=== PATIENT | female | born 1960 | race Caucasian/White ===

== ENCOUNTER 2018-07-31 10:03 | Inpatient (IN) | payer OTHER ==
[~2018-07-31] VITALS: Ht 162.6 cm; Wt 72.7 kg
[2018-07-31] MEDS ORDERED: IV NORMAL SALINE 500ML BAG 500 ML IV SCH (11:00)
--- NOTE | 2018-07-31 11:08 | EKG ---
[facility] [address] [place] [address] Test Date: 2018-07-31 Test Time: 10:47:55 Pat Name: LEMUEL BANGURA Department: Room: Gender: F [employer]: : 1960 Requested By: RODOLFO RODRIGUEZ Order Number: [id number] Reading MD: J Luis Christina MD Measurements Intervals [place] Rate: 80 P: 35 MT: 108 QRS: 67 QRSD: 84 T: 50 QT: 362 QTc: 420 Interpretive Statements SINUS RHYTHM NON SPECIFIC ST DEPRESSION Electronically Signed On 07-31-2018 15:44:18 CDT by J Luis Christina MD
--- NOTE | 2018-07-31 11:30 | RAD ---
PORTABLE CHEST 1V History: PASSED OUT TODAY Comparison: None. Findings: Single view of the chest is submitted. There is no infiltrate, pneumothorax, or effusion. The pericardial cardiac silhouette is within normal limits in size. Impression: 1. There is no evidence of acute cardiopulmonary disease. Electronically signed by: Reed Mccarty MD (07/31/2018 11:28 AM) [id number]
[2018-07-31 11:48] LABS: BASO # 0.1 x10^3/uL (0.0-0.2); BASO % 1 % (0-3); EOS # 0.2 x10^3/uL (0.0-0.7); EOS % 2 % (0-3); HEMOGLOBIN 14.8 g/dL (12.0-15.5); LYMPH # 2.9 x10^3/uL (1.0-4.8); LYMPH % 25 % (24-48); MEAN CORPUSCULAR HEMOGLOBIN 30 pg (25-35); MEAN CORPUSCULAR HGB CONC 34 g/dL (31-37); MEAN CORPUSCULAR VOLUME 90 fL (79-100); MONO # 0.7 x10^3/uL (0.0-1.1); MONO % 6 % (0-9); NEUT # 7.8 x10^3uL (1.8-7.7); NEUT % 67 % (31-73); PLATELET COUNT 351 x10^3/uL (140-400); RED BLOOD COUNT 4.92 x10^6/uL (3.50-5.40); RED CELL DISTRIBUTION WIDTH 14.6 % (11.5-14.5); WHITE BLOOD COUNT 11.6 x10^3/uL (4.0-11.0)
[2018-07-31 11:50] LABS: BILIRUBIN,URINE NEGATIVE (NEG); CLARITY,URINE CLEAR; COLOR,URINE YELLOW; NITRITE,URINE NEGATIVE (NEG); PROTEIN,URINE NEGATIVE (NEG-TRACE); UROBILINOGEN,URINE 0.2 mg/dL (0.2 mg/dL)
[2018-07-31 11:57] LABS: BARBITURATES NEG (NEG); BENZODIAZEPINES NEG (NEG); CANNABINOIDS NEG (NEG); COCAINE NEG (NEG); METHADONE NEG (NEG); OPIATES NEG (NEG); PHENCYCLIDINE NEG (NEG)
[2018-07-31 11:59] LABS: AMPHETAMINE/METHAMPHETAMINE NEG (NEG)
[2018-07-31 12:01] LABS: BACTERIA,URINE FEW /HPF (0-FEW); SQUAMOUS EPITHELIAL CELL,UR FEW /LPF; WBC,URINE OCC /HPF (0-4)
[2018-07-31 12:04] LABS: CALCIUM 9.3 mg/dL (8.5-10.1); CREATININE 1.2 mg/dL (0.6-1.0); GFR 46.3
[2018-07-31 12:11] LABS: ALBUMIN 4.1 g/dL (3.4-5.0); ALBUMIN/GLOBULIN RATIO 1.1 (1.0-1.7); MAGNESIUM 2.2 mg/dL (1.8-2.4); TOTAL BILIRUBIN 0.4 mg/dL (0.2-1.0); TOTAL PROTEIN 7.7 g/dL (6.4-8.2)
--- NOTE | 2018-07-31 13:08 | PHYS DOC ---
Past Medical History Past Medical History: Anxiety, Bipolar, Depression, Fibromyalgia, Hypertension Past Surgical History: Tonsillectomy, Tubal ligation Alcohol Use: None Drug Use: None Adult General Chief Complaint Chief Complaint: ALLERGIC REACTION HPI HPI Patient is a 58 year old female who presents with complaining of syncope. Patient states she was started on Wellbutrin few days ago for quit smoking and developed a rash in right upper extremity started 5 days ago that gradually improved but this morning she felt dizzy and lightheadedness and had a syncopal episode while she stepped outside to smoke. Patient denies history of syncope, chest pain before or after episodes of syncope, focal neuro deficit, seizure. Patient complaining of confusion. Review of Systems Review of Systems Constitutional: Denies fever or chills [] Eyes: Denies change in visual acuity, redness, or eye pain [] HENT: Denies nasal congestion or sore throat [] Respiratory: Denies cough or shortness of breath [] Cardiovascular: No additional information not addressed in HPI [] GI: Denies abdominal pain, nausea, vomiting, bloody stools or diarrhea [] : Denies dysuria or hematuria [] Musculoskeletal: Denies back pain or joint pain [] Integument:, Reports rash Neurologic: Denies headache, focal weakness or sensory changes [] Endocrine: Denies polyuria or polydipsia [] All other systems were reviewed and found to be within normal limits, except as documented in this note. Current Medications Current Medications Current Medications Medications (Trade) Dose Ordered Sig/Janessa Start Time Stop Time Status Last Admin Dose Admin Sodium Chloride 500 ml @ 500 mls/hr Q1H 07/31/18 11:00 07/31/18 11:35 DC 07/31/18 11:35 500 MLS/HR Allergies Allergies Allergies Coded Allergies Type Severity Reaction Last Updated Verified codeine Allergy Unknown 07/31/18 Yes iodine Allergy Unknown 07/31/18 Yes Physical Exam Physical Exam Constitutional: Well nourished, mild distress, non-toxic appearance. [] HENT: Normocephalic, atraumatic, bilateral external ears normal, oropharynx moist, no oral exudates, nose normal. [] Eyes: PERRLA, EOMI, conjunctiva normal, no discharge. [] Neck: Normal range of motion, no tenderness, supple, no stridor. [] Cardiovascular:Heart rate regular rhythm, no murmur [] Lungs & Thorax: Bilateral breath sounds clear to auscultation [] Abdomen: Bowel sounds normal, soft, no tenderness, no masses, no pulsatile masses. [] Skin: Warm, dry, no erythema, right forearm with nonpruritic erythematous rash without sign of infection. Back: No tenderness, no CVA tenderness. [] Extremities: No tenderness, no cyanosis, no clubbing, ROM intact, no edema. [] Neurologic: Alert and oriented X 3, normal motor function, normal sensory function, no focal deficits noted. [] Psychologic: Affect anxious, judgement normal, mood normal. [] Current Patient Data Vital Signs Vital Signs Date Time Temp Pulse Resp B/P (MAP) Pulse Ox O2 Delivery O2 Flow Rate FiO2 07/31/18 12:40 70 16 102/62 (75) 96 Room Air 07/31/18 10:30 98.4 98.4 Lab Values Laboratory Tests Test 07/31/18 11:09 07/31/18 11:25 White Blood Count 11.6 x10^3/uL (4.0-11.0) H Red Blood Count 4.92 x10^6/uL (3.50-5.40) Hemoglobin 14.8 g/dL (12.0-15.5) Hematocrit 44.0 % (36.0-47.0) Mean Corpuscular Volume 90 fL (79-100) Mean Corpuscular Hemoglobin 30 pg (25-35) Mean Corpuscular Hemoglobin Concent 34 g/dL (31-37) Red Cell Distribution Width 14.6 % (11.5-14.5) H Platelet Count 351 x10^3/uL (140-400) Neutrophils (%) (Auto) 67 % (31-73) Lymphocytes (%) (Auto) 25 % (24-48) Monocytes (%) (Auto) 6 % (0-9) Eosinophils (%) (Auto) 2 % (0-3) Basophils (%) (Auto) 1 % (0-3) Neutrophils # (Auto) 7.8 x10^3uL (1.8-7.7) H Lymphocytes # (Auto) 2.9 x10^3/uL (1.0-4.8) Monocytes # (Auto) 0.7 x10^3/uL (0.0-1.1) Eosinophils # (Auto) 0.2 x10^3/uL (0.0-0.7) Basophils # (Auto) 0.1 x10^3/uL (0.0-0.2) Sodium Level 134 mmol/L (136-145) L Potassium Level 4.0 mmol/L (3.5-5.1) Chloride Level 96 mmol/L (98-107) L Carbon Dioxide Level 24 mmol/L (21-32) Anion Gap 14 (6-14) Blood Urea Nitrogen 18 mg/dL (7-20) Creatinine 1.2 mg/dL (0.6-1.0) H Estimated GFR (Cockcroft-Gault) 46.3 BUN/Creatinine Ratio 15 (6-20) Glucose Level 86 mg/dL (70-99) Calcium Level 9.3 mg/dL (8.5-10.1) Magnesium Level 2.2 mg/dL (1.8-2.4) Total Bilirubin 0.4 mg/dL (0.2-1.0) Aspartate Amino Transferase (AST) 14 U/L (15-37) L Alanine Aminotransferase (ALT) 27 U/L (14-59) Alkaline Phosphatase 75 U/L (46-116) Creatine Kinase 86 U/L (26-192) Creatine Kinase MB (Mass) 2.2 ng/mL (0.0-3.6) Creatine Kinase MB Relative Index 2.6 % (0-4) Troponin I Quantitative < 0.017 ng/mL (0.000-0.055) Total Protein 7.7 g/dL (6.4-8.2) Albumin 4.1 g/dL (3.4-5.0) Albumin/Globulin Ratio 1.1 (1.0-1.7) Ethyl Alcohol Level < 10 mg/dL (0-10) Urine Collection Type Unknown Urine Color Yellow Urine Clarity Clear Urine pH 6.0 Urine Specific [place] 1.015 Urine Protein Negative mg/dL (NEG-TRACE) Urine Glucose (UA) Negative mg/dL (NEG) Urine Ketones (Stick) Negative mg/dL (NEG) Urine Blood Trace (NEG) Urine Nitrite Negative (NEG) Urine Bilirubin Negative (NEG) Urine Urobilinogen Dipstick 0.2 mg/dL (0.2 mg/dL) Urine Leukocyte Esterase Trace (NEG) Urine RBC 1-2 /HPF (0-2) Urine WBC Occ /HPF (0-4) Urine Squamous Epithelial Cells Few /LPF Urine Bacteria Few /HPF (0-FEW) Urine Opiates Screen Neg (NEG) Urine Methadone Screen Neg (NEG) Urine Barbiturates Neg (NEG) Urine Phencyclidine Screen Neg (NEG) Urine Amphetamine/Methamphetamine Neg (NEG) Urine Benzodiazepines Screen Neg (NEG) Urine Cocaine Screen Neg (NEG) Urine Cannabinoids Screen Neg (NEG) Urine Ethyl Alcohol Neg (NEG) Laboratory Tests 07/31/18 11:09 Laboratory Tests 07/31/18 11:09 EKG EKG EKG interpreted by me. EKG at 1047 showed normal sinus rhythm at rate of 81, normal [place] and QT intervals, no acute ST and T-wave abnormalities.[] Radiology/Procedures Radiology/Procedures [facility] [address] [place] [address] IMAGING REPORT Signed PATIENT: LEMUEL BANGURA ACCOUNT: [id number] : 1960 LOCATION: ER AGE: 58 SEX: F EXAM STATUS: REG ER ORD. PHYSICIAN: RODOLFO RODRIGUEZ MD REASON: syncope 5 PROCEDURE: PORTABLE CHEST 1V PORTABLE CHEST 1V History: PASSED OUT TODAY Comparison: None. Findings: Single view of the chest is submitted. There is no infiltrate, pneumothorax, or effusion. The pericardial cardiac silhouette is within normal limits in size. Impression: 1. There is no evidence of acute cardiopulmonary disease. Electronically signed by: Beltran Mccarty MD (07/31/2018 11:28 AM) [facility] DICTATED and SIGNED BY: BELTRAN MCCARTY MD DATE: 07/31/18 1128 Course & Med Decision Making Course & Med Decision Making Pertinent Labs and Imaging studies reviewed. (See chart for details) Personal patient in ER showed 58-year-old female patient with complaining of one episode of syncope today without history of syncopal episode. Patient was talking about different subjects at arrival to ER but later on became more alert and oriented without any neurovascular deficit and answered the questions appropriately. Plan to admit patient with diagnosis of syncope. Dragon Disclaimer Dragon Disclaimer This electronic medical record was generated, in whole or in part, using a voice recognition dictation system. Departure Departure Impression: Primary Impression: Syncope Additional Impressions: Skin rash History of bipolar disorder Tobacco abuse Disposition: 09 ADMITTED INPATIENT (at 1257) Admitting Physician: Rafi Zavala (accepted admission at 1336) Condition: IMPROVED Referrals: DALLAS MCFADDEN MD (PCP) Problem Qualifiers Primary Impression: Syncope Syncope type: unspecified Qualified Codes: R55 - Syncope and collapse RODOLFO RODRIGUEZ MD Jul 31, 2018 13:08
[2018-07-31 15:30] VITALS: BP 110/53
[2018-07-31] MEDS ORDERED: SUMA100T4 PO (16:31)
[2018-07-31] MEDS ORDERED: ONDA4TAB12 PO (16:31)
[2018-07-31] MEDS ORDERED: AZIT250T6 PO (16:31)
[2018-07-31] MEDS ORDERED: LISI1TAB5 PO (16:31)
[2018-07-31] MEDS ORDERED: FAMO20TA5 PO (16:31)
[2018-07-31] MEDS ORDERED: BUPR150T6 PO (16:32)
[2018-07-31] MEDS ORDERED: PRED20TA PO (16:32)
--- NOTE | 2018-07-31 16:48 | NUR ---
Pt cannot recall what home medications she currently takes but confirmed that her pharmacy [facility] on [address], in [facility]. Spoke with a pharmacy retail support specialist, whom faxed a current medication list, via [phone]. The medication list does not list the frequency of medications. This RN attempted to call pharmacy three times and was on hold for approx 5 minutes each time. Attempted to call patient primary doctor, Dr. Moses through [employer] and [employer] at [phone] to get another medication list. Office was already closed. Patient did say "I take each pill once a day, but if I feel like I need more then I take two or three." Medications reviewed as accurate as possible at this moment. Will pass along to shift mgr to contact the patient PCP tomorrow morning to verify medications.
[2018-07-31] MEDS ORDERED: LORazepam 1 MG TABLET PO PRN (17:00)
--- NOTE | 2018-07-31 18:23 | HP ---
ADMIT DATE: 07/31/2018 CHIEF COMPLAINT: Possible allergic reaction and syncope. HISTORY OF PRESENT ILLNESS: The patient is a pleasant 58-year-old female who presented complaining of some near syncopal episodes. She states she was started on Wellbutrin to quit smoking and has developed little bit of a rash on the right extremity, started 5 days ago. It has been improving, but this morning she felt dizzy and lightheaded and had a near syncopal episode. Rates her symptoms at 7/10. She has associated anxiety. I discussed the case with the ER physician. We are going to admit the patient. She will be here at least 2 midnights. PAST MEDICAL HISTORY: Bipolar, anxiety, tobacco abuse, depression, fibromyalgia, hypertension, tonsillectomy, and tubal ligation. ALLERGIES: LATEX, COCONUT, CODEINE, IODINE AND SOAP. FAMILY HISTORY: Coronary disease. SOCIAL HISTORY: She does not drink, smoke or take drugs. MEDICATIONS: Reviewed, please refer to the MRAD. She is on azithromycin, lisinopril, hydrochlorothiazide, Wellbutrin, sumatriptan, ondansetron, Pepcid and prednisone. REVIEW OF SYSTEMS: GENERAL: No history of weight change, weakness or fevers. SKIN: She complains of right arm rash that is resolving. EYES: No blurred, double or loss of vision. NOSE AND THROAT: No history of nosebleeds, hoarseness or sore throat. HEART: No history of palpitations, chest pain or shortness of breath on exertion. LUNGS: Denies cough, hemoptysis, wheezing or shortness of breath. GASTROINTESTINAL: Denies changes in appetite, nausea, vomiting, diarrhea or constipation. GENITOURINARY: No history of frequency, urgency, hesitancy or nocturia. NEUROLOGIC: She complains of near syncope. PSYCHIATRIC: No history of panic, anxiety or depression. ENDOCRINE: No history of heat or cold intolerance, polyuria or polydipsia. EXTREMITIES: Denies muscle weakness, joint pain, pain on walking or stiffness. PHYSICAL EXAMINATION: VITAL SIGNS: Temperature afebrile, pulse 92, respirations 18, blood pressure 140/90. GENERAL: She is alert, cooperative. HEART: Normal S1, S2. LUNGS: Clear. ABDOMEN: Soft. EXTREMITIES: No edema. SKIN: She has got slight rash on the right arm. ENDOCRINE: No thyromegaly. LYMPHATICS: No cervical nodes. HEMATOPOIETIC: No bruising. PSYCHIATRIC: She is anxious. LABORATORY DATA: Pending. ASSESSMENT AND PLAN: Near syncope. The patient has been admitted. We are consulting Neurology. We will resume her home meds, but hold the Wellbutrin as she thinks she might be allergic to that. PT, OT, DVT prophylaxis. Full code. EVELIA MALONEY DO DR: ROM/doni JOB#: [id number] / [id number]
[2018-07-31] MEDS: diazePAM 5 MG TABLET PO PRN (19:04)
[2018-07-31 19:20] VITALS: BP 118/48
[2018-07-31] MEDS: FAMOTIDINE 20 MG TABLET. PO SCH (21:12)
[2018-07-31 21:32] LABS: BARBITURATES NEG (NEG); BENZODIAZEPINES NEG (NEG); CANNABINOIDS NEG (NEG); COCAINE NEG (NEG); METHADONE NEG (NEG); OPIATES NEG (NEG); PHENCYCLIDINE NEG (NEG)
[2018-07-31 21:34] LABS: AMPHETAMINE/METHAMPHETAMINE NEG (NEG)
[2018-07-31 23:20] VITALS: BP 103/51
[2018-08-01] VITALS (8 sets, daily range): BP systolic 87–153; BP diastolic 34–64
[2018-08-01] MEDS: diazePAM 5 MG TABLET PO PRN ×2 (05:08→20:16)
[2018-08-01] MEDS: hydroCHLOROthiazide 12.5 MG CAPSULE PO SCH (08:23)
[2018-08-01] MEDS: FAMOTIDINE 20 MG TABLET. PO SCH ×2 (08:23→20:16)
[2018-08-01] MEDS: LISINOPRIL 20 MG TABLET PO SCH (08:24)
[2018-08-01] MEDS ORDERED: AZITHROMYCIN 250 MG TABLET. PO SCH (09:00)
[2018-08-01] MEDS ORDERED: predniSONE 20 MG TABLET PO SCH (09:00)
--- NOTE | 2018-08-01 09:35 | PDOC ---
PROGRESS NOTES Chief Complaint Chief Complaint states she was started on Wellbutrin to quit smoking and has developed little bit of a rash on the right extremity, started 5 days ago. It has been improving, but 07/31 she felt dizzy and lightheaded and had a syncopal episode. she notes a hx of chest tightness when walking one flight of stairs, has a 45 pk year smoking hx History of Present Illness History of Present Illness ASSESSMENT AND PLAN: syncope. hx hypertension GERD HX TOBACCO ABUSE atypical chest tightness bipolar disease anxiety disorder plan admitted. tele consult Neurology. home meds, hold Wellbutrin PT, OT, DVT prophylaxis. Full code orthostatic bp and pulse. ECHO DOPPLER CAROTIDS Cardiology consult, re syncope, atypical chest discomfort Vitals Vitals Vital Signs Date Time Temp Pulse Resp B/P (MAP) Pulse Ox O2 Delivery O2 Flow Rate FiO2 08/01/18 08:24 65 139/64 08/01/18 08:00 97.9 18 98 Room Air 97.9 Physical Exam Physical Exam LUNGS: Clear. ABDOMEN: Soft. EXTREMITIES: No edema. SKIN: rash on the right arm. ENDOCRINE: No thyromegaly. LYMPHATICS: No cervical nodes. HEMATOPOIETIC: No bruising. PSYCHIATRIC: She is anxious. General: Alert, Oriented X3, Cooperative, No acute distress, Other (anxious) Heart: Regular rate, Normal S1, Normal S2 Lungs: Clear Abdomen: Normal bowel sounds, Soft, No tenderness Extremities: No clubbing, No cyanosis Skin: No significant lesion Labs LABS Laboratory Tests Test 07/31/18 11:09 07/31/18 11:25 07/31/18 20:50 White Blood Count 11.6 x10^3/uL (4.0-11.0) Red Blood Count 4.92 x10^6/uL (3.50-5.40) Hemoglobin 14.8 g/dL (12.0-15.5) Hematocrit 44.0 % (36.0-47.0) Mean Corpuscular Volume 90 fL (79-100) Mean Corpuscular Hemoglobin 30 pg (25-35) Mean Corpuscular Hemoglobin Concent 34 g/dL (31-37) Red Cell Distribution Width 14.6 % (11.5-14.5) Platelet Count 351 x10^3/uL (140-400) Neutrophils (%) (Auto) 67 % (31-73) Lymphocytes (%) (Auto) 25 % (24-48) Monocytes (%) (Auto) 6 % (0-9) Eosinophils (%) (Auto) 2 % (0-3) Basophils (%) (Auto) 1 % (0-3) Neutrophils # (Auto) 7.8 x10^3uL (1.8-7.7) Lymphocytes # (Auto) 2.9 x10^3/uL (1.0-4.8) Monocytes # (Auto) 0.7 x10^3/uL (0.0-1.1) Eosinophils # (Auto) 0.2 x10^3/uL (0.0-0.7) Basophils # (Auto) 0.1 x10^3/uL (0.0-0.2) Sodium Level 134 mmol/L (136-145) Potassium Level 4.0 mmol/L (3.5-5.1) Chloride Level 96 mmol/L (98-107) Carbon Dioxide Level 24 mmol/L (21-32) Anion Gap 14 (6-14) Blood Urea Nitrogen 18 mg/dL (7-20) Creatinine 1.2 mg/dL (0.6-1.0) Estimated GFR (Cockcroft-Gault) 46.3 BUN/Creatinine Ratio 15 (6-20) Glucose Level 86 mg/dL (70-99) Calcium Level 9.3 mg/dL (8.5-10.1) Magnesium Level 2.2 mg/dL (1.8-2.4) Total Bilirubin 0.4 mg/dL (0.2-1.0) Aspartate Amino Transf (AST/SGOT) 14 U/L (15-37) Alanine Aminotransferase (ALT/SGPT) 27 U/L (14-59) Alkaline Phosphatase 75 U/L (46-116) Creatine Kinase 86 U/L (26-192) Creatine Kinase MB (Mass) 2.2 ng/mL (0.0-3.6) Creatine Kinase MB Relative Index 2.6 % (0-4) Troponin I Quantitative < 0.017 ng/mL (0.000-0.055) Total Protein 7.7 g/dL (6.4-8.2) Albumin 4.1 g/dL (3.4-5.0) Albumin/Globulin Ratio 1.1 (1.0-1.7) Ethyl Alcohol Level < 10 mg/dL (0-10) Urine Collection Type Unknown Urine Color Yellow Urine Clarity Clear Urine pH 6.0 Urine Specific [place] 1.015 Urine Protein Negative mg/dL (NEG-TRACE) Urine Glucose (UA) Negative mg/dL (NEG) Urine Ketones (Stick) Negative mg/dL (NEG) Urine Blood Trace (NEG) Urine Nitrite Negative (NEG) Urine Bilirubin Negative (NEG) Urine Urobilinogen Dipstick 0.2 mg/dL (0.2 mg/dL) Urine Leukocyte Esterase Trace (NEG) Urine RBC 1-2 /HPF (0-2) Urine WBC Occ /HPF (0-4) Urine Squamous Epithelial Cells Few /LPF Urine Bacteria Few /HPF (0-FEW) Urine Opiates Screen Neg (NEG) Neg (NEG) Urine Methadone Screen Neg (NEG) Neg (NEG) Urine Barbiturates Neg (NEG) Neg (NEG) Urine Phencyclidine Screen Neg (NEG) Neg (NEG) Urine Amphetamine/Methamphetamine Neg (NEG) Neg (NEG) Urine Benzodiazepines Screen Neg (NEG) Neg (NEG) Urine Cocaine Screen Neg (NEG) Neg (NEG) Urine Cannabinoids Screen Neg (NEG) Neg (NEG) Urine Ethyl Alcohol Neg (NEG) Neg (NEG) Assessment and Plan Assessmemt and Plan Problems Medical Problems: (1) History of bipolar disorder Status: Acute (2) Skin rash Status: Acute (3) Syncope Status: Acute (4) Tobacco abuse Status: Acute Past Medical History Past Medical History: Anxiety, Bipolar, Depression, Fibromyalgia, Hypertension Past Surgical History: Tonsillectomy, Tubal ligation Alcohol Use: None Drug Use: None Comment Review of Relevant I have reviewed the following items zina (where applicable) has been applied. Labs Laboratory Tests Test 07/31/18 11:09 07/31/18 11:25 07/31/18 20:50 White Blood Count 11.6 x10^3/uL (4.0-11.0) Red Blood Count 4.92 x10^6/uL (3.50-5.40) Hemoglobin 14.8 g/dL (12.0-15.5) Hematocrit 44.0 % (36.0-47.0) Mean Corpuscular Volume 90 fL (79-100) Mean Corpuscular Hemoglobin 30 pg (25-35) Mean Corpuscular Hemoglobin Concent 34 g/dL (31-37) Red Cell Distribution Width 14.6 % (11.5-14.5) Platelet Count 351 x10^3/uL (140-400) Neutrophils (%) (Auto) 67 % (31-73) Lymphocytes (%) (Auto) 25 % (24-48) Monocytes (%) (Auto) 6 % (0-9) Eosinophils (%) (Auto) 2 % (0-3) Basophils (%) (Auto) 1 % (0-3) Neutrophils # (Auto) 7.8 x10^3uL (1.8-7.7) Lymphocytes # (Auto) 2.9 x10^3/uL (1.0-4.8) Monocytes # (Auto) 0.7 x10^3/uL (0.0-1.1) Eosinophils # (Auto) 0.2 x10^3/uL (0.0-0.7) Basophils # (Auto) 0.1 x10^3/uL (0.0-0.2) Sodium Level 134 mmol/L (136-145) Potassium Level 4.0 mmol/L (3.5-5.1) Chloride Level 96 mmol/L (98-107) Carbon Dioxide Level 24 mmol/L (21-32) Anion Gap 14 (6-14) Blood Urea Nitrogen 18 mg/dL (7-20) Creatinine 1.2 mg/dL (0.6-1.0) Estimated GFR (Cockcroft-Gault) 46.3 BUN/Creatinine Ratio 15 (6-20) Glucose Level 86 mg/dL (70-99) Calcium Level 9.3 mg/dL (8.5-10.1) Magnesium Level 2.2 mg/dL (1.8-2.4) Total Bilirubin 0.4 mg/dL (0.2-1.0) Aspartate Amino Transf (AST/SGOT) 14 U/L (15-37) Alanine Aminotransferase (ALT/SGPT) 27 U/L (14-59) Alkaline Phosphatase 75 U/L (46-116) Creatine Kinase 86 U/L (26-192) Creatine Kinase MB (Mass) 2.2 ng/mL (0.0-3.6) Creatine Kinase MB Relative Index 2.6 % (0-4) Troponin I Quantitative < 0.017 ng/mL (0.000-0.055) Total Protein 7.7 g/dL (6.4-8.2) Albumin 4.1 g/dL (3.4-5.0) Albumin/Globulin Ratio 1.1 (1.0-1.7) Ethyl Alcohol Level < 10 mg/dL (0-10) Urine Collection Type Unknown Urine Color Yellow Urine Clarity Clear Urine pH 6.0 Urine Specific [place] 1.015 Urine Protein Negative mg/dL (NEG-TRACE) Urine Glucose (UA) Negative mg/dL (NEG) Urine Ketones (Stick) Negative mg/dL (NEG) Urine Blood Trace (NEG) Urine Nitrite Negative (NEG) Urine Bilirubin Negative (NEG) Urine Urobilinogen Dipstick 0.2 mg/dL (0.2 mg/dL) Urine Leukocyte Esterase Trace (NEG) Urine RBC 1-2 /HPF (0-2) Urine WBC Occ /HPF (0-4) Urine Squamous Epithelial Cells Few /LPF Urine Bacteria Few /HPF (0-FEW) Urine Opiates Screen Neg (NEG) Neg (NEG) Urine Methadone Screen Neg (NEG) Neg (NEG) Urine Barbiturates Neg (NEG) Neg (NEG) Urine Phencyclidine Screen Neg (NEG) Neg (NEG) Urine Amphetamine/Methamphetamine Neg (NEG) Neg (NEG) Urine Benzodiazepines Screen Neg (NEG) Neg (NEG) Urine Cocaine Screen Neg (NEG) Neg (NEG) Urine Cannabinoids Screen Neg (NEG) Neg (NEG) Urine Ethyl Alcohol Neg (NEG) Neg (NEG) Laboratory Tests Test 07/31/18 11:09 07/31/18 11:25 07/31/18 20:50 White Blood Count 11.6 x10^3/uL (4.0-11.0) Red Blood Count 4.92 x10^6/uL (3.50-5.40) Hemoglobin 14.8 g/dL (12.0-15.5) Hematocrit 44.0 % (36.0-47.0) Mean Corpuscular Volume 90 fL (79-100) Mean Corpuscular Hemoglobin 30 pg (25-35) Mean Corpuscular Hemoglobin Concent 34 g/dL (31-37) Red Cell Distribution Width 14.6 % (11.5-14.5) Platelet Count 351 x10^3/uL (140-400) Neutrophils (%) (Auto) 67 % (31-73) Lymphocytes (%) (Auto) 25 % (24-48) Monocytes (%) (Auto) 6 % (0-9) Eosinophils (%) (Auto) 2 % (0-3) Basophils (%) (Auto) 1 % (0-3) Neutrophils # (Auto) 7.8 x10^3uL (1.8-7.7) Lymphocytes # (Auto) 2.9 x10^3/uL (1.0-4.8) Monocytes # (Auto) 0.7 x10^3/uL (0.0-1.1) Eosinophils # (Auto) 0.2 x10^3/uL (0.0-0.7) Basophils # (Auto) 0.1 x10^3/uL (0.0-0.2) Sodium Level 134 mmol/L (136-145) Potassium Level 4.0 mmol/L (3.5-5.1) Chloride Level 96 mmol/L (98-107) Carbon Dioxide Level 24 mmol/L (21-32) Anion Gap 14 (6-14) Blood Urea Nitrogen 18 mg/dL (7-20) Creatinine 1.2 mg/dL (0.6-1.0) Estimated GFR (Cockcroft-Gault) 46.3 BUN/Creatinine Ratio 15 (6-20) Glucose Level 86 mg/dL (70-99) Calcium Level 9.3 mg/dL (8.5-10.1) Magnesium Level 2.2 mg/dL (1.8-2.4) Total Bilirubin 0.4 mg/dL (0.2-1.0) Aspartate Amino Transf (AST/SGOT) 14 U/L (15-37) Alanine Aminotransferase (ALT/SGPT) 27 U/L (14-59) Alkaline Phosphatase 75 U/L (46-116) Creatine Kinase 86 U/L (26-192) Creatine Kinase MB (Mass) 2.2 ng/mL (0.0-3.6) Creatine Kinase MB Relative Index 2.6 % (0-4) Troponin I Quantitative < 0.017 ng/mL (0.000-0.055) Total Protein 7.7 g/dL (6.4-8.2) Albumin 4.1 g/dL (3.4-5.0) Albumin/Globulin Ratio 1.1 (1.0-1.7) Ethyl Alcohol Level < 10 mg/dL (0-10) Urine Collection Type Unknown Urine Color Yellow Urine Clarity Clear Urine pH 6.0 Urine Specific [place] 1.015 Urine Protein Negative mg/dL (NEG-TRACE) Urine Glucose (UA) Negative mg/dL (NEG) Urine Ketones (Stick) Negative mg/dL (NEG) Urine Blood Trace (NEG) Urine Nitrite Negative (NEG) Urine Bilirubin Negative (NEG) Urine Urobilinogen Dipstick 0.2 mg/dL (0.2 mg/dL) Urine Leukocyte Esterase Trace (NEG) Urine RBC 1-2 /HPF (0-2) Urine WBC Occ /HPF (0-4) Urine Squamous Epithelial Cells Few /LPF Urine Bacteria Few /HPF (0-FEW) Urine Opiates Screen Neg (NEG) Neg (NEG) Urine Methadone Screen Neg (NEG) Neg (NEG) Urine Barbiturates Neg (NEG) Neg (NEG) Urine Phencyclidine Screen Neg (NEG) Neg (NEG) Urine Amphetamine/Methamphetamine Neg (NEG) Neg (NEG) Urine Benzodiazepines Screen Neg (NEG) Neg (NEG) Urine Cocaine Screen Neg (NEG) Neg (NEG) Urine Cannabinoids Screen Neg (NEG) Neg (NEG) Urine Ethyl Alcohol Neg (NEG) Neg (NEG) Medications Current Medications Sodium Chloride 500 ml @ 500 mls/hr Q1H IV Last administered on 07/31/18at 11:35 ; Start 07/31/18 at 11:00; Stop 07/31/18 at 11:35; Status DC Lorazepam (Ativan) 1 mg PRN Q4HRS PRN PO ANXIETY / AGITATION; Start 07/31/18 at 17:00; Stop 07/31/18 at 17:07; Status DC Diazepam (Valium) 5 mg PRN Q6HRS PRN PO ANXIETY Last administered on 08/01/18at 05:08; Start 07/31/18 at 17:15 Azithromycin (Zithromax) 250 mg DAILY PO ; Start 08/01/18 at 09:00; Status UNV Famotidine (Pepcid) 20 mg BID PO Last administered on 08/01/18at 08:23; Start 07/31/18 at 21:00 Prednisone (Prednisone) 20 mg DAILY PO ; Start 08/01/18 at 09:00; Status UNV Lisinopril (Prinivil) 20 mg DAILY PO Last administered on 08/01/18at 08:24; Start 08/01/18 at 09:00 Hydrochlorothiazide (Microzide) 12.5 mg DAILY PO Last administered on 08/01/18at 08:23; Start 08/01/18 at 09:00 Active Scripts Active Reported Prednisone 20 Mg Tablet 1 Tab PO DAILY Bupropion Xl (Bupropion Hcl) 150 Mg Tab.er.24h 1 Tab PO DAILYWBKFT Azithromycin Tablet (Azithromycin) 250 Mg Tablet 250 Mg PO DAILY Sumatriptan Succinate 100 Mg Tablet 0.5 Tab PO UD Ondansetron Odt (Ondansetron) 4 Mg Tab.rapdis 1 Tab PO PRN Q6-8HRS Lisinopril-Hctz 20-12.5 Mg Tab (Lisinopril/Hydrochlorothiazide) 1 Each Tablet 1 Tab PO DAILY Famotidine 20 Mg Tablet 20 Mg PO BID Vitals/I & O Vital Sign - Last 24 Hours 07/31/18 07/31/18 07/31/18 07/31/18 10:30 11:10 11:20 11:40 Temp 98.4 98.4 Pulse 92 90 72 62 Resp 18 16 18 18 B/P (MAP) 145/80 (101) 131/65 (87) 129/65 (86) 139/64 (89) Pulse Ox 99 98 96 99 O2 Delivery Room Air Room Air 07/31/18 07/31/18 07/31/18 07/31/18 12:10 12:40 13:40 14:40 Pulse 64 70 66 62 Resp 16 16 18 18 B/P (MAP) 108/59 (75) 102/62 (75) 126/67 (86) 119/58 (78) Pulse Ox 96 96 99 99 O2 Delivery Room Air Room Air 07/31/18 07/31/18 07/31/18 07/31/18 15:30 16:06 19:20 20:23 Temp 97.7 97.9 97.7 97.9 Pulse 71 65 Resp 16 18 B/P (MAP) 110/53 (72) 118/48 (71) Pulse Ox 98 98 O2 Delivery Room Air Room Air Room Air Room Air 4/8/19 4/9/19 4/9/19 4/9/19 23:20 03:20 08:00 08:24 Temp 98.5 98.0 97.9 98.5 98.0 97.9 Pulse 61 61 65 65 Resp 18 18 18 B/P (MAP) 103/51 (68) 153/51 (85) 139/64 (89) 139/64 Pulse Ox 96 97 98 O2 Delivery Room Air Room Air Room Air Intake and Output 07/31/18 07/31/18 08/01/18 15:00 23:00 07:00 Intake Total 500 ml 690 ml 200 ml Output Total 350 ml Balance 500 ml 340 ml 200 ml YOCASTA PAUL MD Aug 01, 2018 09:35
[2018-08-01] MEDS ORDERED: diphenhydrAMINE 50 MG/ML VIAL IVP PRN (12:30)
[2018-08-01] MEDS: VARENICLINE 0.5 MG TABLET. PO SCH (13:26)
[2018-08-01] MEDS: ALBUTEROL SULFATE 2.5 MG/3 ML NEBU. NEB PRN ×2 (13:48→20:22)
--- NOTE | 2018-08-01 15:41 | PDOC2 ---
LAURO ALVES MODERN DANCER 08/01/18 1541: CARDIAC CONSULT DATE OF CONSULT Date of Consult DATE: 08/01/18 TIME: 15:30 REASON FOR CONSULT Reason for Consult: near syncope REFERRING PHYSICIAN Referring Physician: Fullbright SOURCE Source: Chart review, Patient HISTORY OF PRESENT ILLNESS HISTORY OF PRESENT ILLNESS This is an anxious 58 yo female admitted for complains of lightheadedness. Reports that she has been trying to quit smoking and was started on wellbutrin Tuesday last week and have to stop it Tuesday due to right arm rash and feeling of confusion. Reports that Tuesday she has been having feeling of lightheadedness but no visual disturbances and has chronic tinnitus. Feels at time of palpitations but she did check her HR telling me that it was fast in the 80-90 range. She also has migraine and has just been taking ibuprofen because she had tingling on her hands when she was on sumatriptan. Tuesday she had another bout of lightheadedness but no passing out. No chest pain or SOA. No vomiting. She does have hx of HTN and takes lisinopril. No exertional CP nor HARDING. No past hx of CAD, arrhythmias. She does anxiety issues. PAST MEDICAL HISTORY Cardiovascular: HTN CENTRAL NERVOUS SYSTEM: Migraine, TIA (?) GI: GERD Psych: Anxiety, Depression Musculoskeletal: Osteoarthritis Rheumatologic: Fibromyalgia PAST SURGICAL HISTORY Past Surgical History: Tubal Ligation, Tonsillectomy FAMILY HISTORY Family History: Heart Disease SOCIAL HISTORY Smoke: 1 pack per day (>35 yrs) ALCOHOL: none Drugs: None Lives: with Family CURRENT MEDICATIONS CURRENT MEDICATIONS Current Medications Medications (Trade) Dose Ordered Sig/Janessa Route PRN Reason Start Time Stop Time Status Last Admin Dose Admin Diazepam (Valium) 5 mg PRN Q6HRS PRN PO ANXIETY 07/31/18 17:15 08/01/18 05:08 Famotidine (Pepcid) 20 mg BID PO 07/31/18 21:00 08/01/18 08:23 Lisinopril (Prinivil) 20 mg DAILY PO 08/01/18 09:00 08/01/18 08:24 Hydrochlorothiazide (Microzide) 12.5 mg DAILY PO 08/01/18 09:00 08/01/18 08:23 Varenicline (Chantix) 0.5 mg DAILY PO 08/01/18 12:30 08/01/18 13:26 Albuterol Sulfate (Ventolin Neb Soln) 2.5 mg PRN Q4HRS PRN NEB SHORTNESS OF BREATH 08/01/18 13:45 08/01/18 13:48 ALLERGIES ALLERGIES: Coded Allergies: coconut (Verified Allergy, Intermediate, Rash, 07/31/18) codeine (Verified Allergy, Intermediate, 07/31/18) iodine (Verified Allergy, Intermediate, 07/31/18) Latex, Natural Rubber (Verified Allergy, Mild, Itching, 07/31/18) Uncoded Allergies: scented hand soap (Allergy, Intermediate, Rash, 07/31/18) ROS Review of System 14 point ROS evaluated with pertinent positives noted per HPI PHYSICAL EXAM General: Alert, Oriented X3, Cooperative, No acute distress HEENT: Atraumatic, Mucous membr. moist/pink Lungs: Clear to auscultation, Normal air movement Heart: Regular rate (SR), Normal S1, Normal S2, Other (2/6 systolic murmur to LLS border) Abdomen: Soft, No tenderness Extremities: No cyanosis, No edema Skin: No breakdown, No significant lesion Neuro: Normal speech, Sensation intact Psych/Mental Status: Mental status NL, Mood NL MUSCULOSKELETAL: Osteoarthritic changes both hands VITALS VITALS Vital Signs Date Time Temp Pulse Resp B/P (MAP) Pulse Ox O2 Delivery O2 Flow Rate FiO2 08/01/18 13:50 96 Room Air 08/01/18 10:51 97.8 72 18 106/53 (70) 97.8 LABS Lab: Laboratory Tests Test 07/31/18 20:50 Urine Opiates Screen Neg (NEG) Urine Methadone Screen Neg (NEG) Urine Barbiturates Neg (NEG) Urine Phencyclidine Screen Neg (NEG) Urine Amphetamine/Methamphetamine Neg (NEG) Urine Benzodiazepines Screen Neg (NEG) Urine Cocaine Screen Neg (NEG) Urine Cannabinoids Screen Neg (NEG) Urine Ethyl Alcohol Neg (NEG) ASSESSMENT/PLAN ASSESSMENT/PLAN 1. Presyncope: EKG SR with nonspecific ST-T wave changes. anxiety contributing. Doubt arrhythmias, negative for orthostasis 2. Migraine: neurology has been consulted. 3. Tobaccoism; recently on Wellbutrin for tobacco cessation 4. Anxiety disorder 5. HTN; controlled Recommendations 1. TTE. TSH 2. Smoking cessation 3. Await neurology workup KATRAPATI,ADIS S MD 08/01/182127: CARDIAC CONSULT ASSESSMENT/PLAN ASSESSMENT/PLAN 58 y.o woman with vague history of possible near syncope. No trauma noted. No preceding pathology such as chest pain, dyspnea. On exam she has COPD No valvular disease or carotid bruits noted. Await carotid doppler and echo Supportive care. LAURO ALVES [employer] DANCER Aug 01, 2018 15:41 ADIS BECKER MD Aug 01, 2018 21:28
--- NOTE | 2018-08-01 18:13 | PDOC2 ---
NEUROLOGY CONSULT Date of Admission Date of Admission DATE: 08/01/18 TIME: 18:00 Reason for Consult Reason for Consult: IMPRESSION: Syncopal spell. Confusional episode. Allergic reaction, skin rash and itching. Bipolar disorder. HTN. Asthma. Smoking. RECOMMENDATIONS/PLAN: EEG to help rule out seizure. Carotid A US + Doppler. Lab: see orders. Consulted cardiology. HISTORY OF PRESENT ILLNESS This is an 58-y-old female patient with complains of lightheadedness and fainting spell. She tried to quit smoking and was started on Wellbutrin last week and had to stop it after 3 days due to right arm rash then whole body rash and itching. She also had cognitive side effects as confusion. She had another episode of lightheadedness and syncopal spell on 07/31/18 but no passing out. PAST MEDICAL HISTORY Cardiovascular: HTN CENTRAL NERVOUS SYSTEM: Migraine, TIA (?) GI: GERD Psych: Anxiety, Depression Musculoskeletal: Osteoarthritis Rheumatologic: Fibromyalgia PAST SURGICAL HISTORY Tubal Ligation, Tonsillectomy FAMILY HISTORY Heart Disease ALLERGIES Coded Allergies: coconut (Verified Allergy, Intermediate, Rash, 07/31/18) codeine (Verified Allergy, Intermediate, 07/31/18) iodine (Verified Allergy, Intermediate, 07/31/18) Latex, Natural Rubber (Verified Allergy, Mild, Itching, 07/31/18) Uncoded Allergies: scented hand soap (Allergy, Intermediate, Rash, 07/31/18) SOCIAL HISTORY Smoke: 1 pack per day (>35 yrs) ALCOHOL: none Drugs: None Lives: with Family MEDICATIONS: Refer to MAR REVIEW OF SYSTEMS: Constitutional: No malnutrition, weight loss, cachexia. Head: No traumatic brain or head injury. Skin: No edema, or rash. Ear: No infection. Eyes: No vision loss or color blindness. Nose: No bleeding or purulent discharges. Hearing: No hearing decrease. Neck: No injury. Breast: No history of cancer, masses,or discharges. Cardiac: HTN. Pulmonary: Asthma, smoking.. GI: No GI ulcer, GI bleeding. Urinary/genital: UTI. Endocrinologic: No cousin face, craniofacial dysmorphism, polydactyly. Skeletomuscular: No muscular atrophy, deformity. Neurological: see HP. Psychiatric: Denies drug use/abuse. Otherwise, not [id number] review of systems. PHYSICAL EXAMINATION: General appearance is in anxious. HEENT: Normocephalic and nontraumatic. Eyes, nose, ears, and throat are unremarkable. Neck is supple. No lymphadenopathy. No crepitus. Cardiovascular: S1, S2, regular rate and rhythm. Pulmonary: Clear to auscultation bilaterally. Abdomen: Bowel sounds are positive. Abdomen is soft, nontender, and nondistended. Extremities: No rash, lesions, or edema. No restriction of range of motion NEUROLOGICAL EXAMINATION: Alert Oriented to time, place and person. PERRL. EOMI. CN: no focal findings. Muscle tone: within normal. Muscle strength: 5 DTR: 2 Plantar reflex: Flexor response bilaterally Gait: not examined in bed. Sensory exam: no abnormal findings. No cerebellar signs elicited. F-T-N test accurate. Current Medications Current Medications Current Medications Sodium Chloride 500 ml @ 500 mls/hr Q1H IV Last administered on 07/31/18at 11:35 ; Start 07/31/18 at 11:00; Stop 07/31/18 at 11:35; Status DC Lorazepam (Ativan) 1 mg PRN Q4HRS PRN PO ANXIETY / AGITATION; Start 07/31/18 at 17:00; Stop 07/31/18 at 17:07; Status DC Diazepam (Valium) 5 mg PRN Q6HRS PRN PO ANXIETY Last administered on 08/01/18at 05:08; Start 07/31/18 at 17:15 Azithromycin (Zithromax) 250 mg DAILY PO ; Start 08/01/18 at 09:00; Status UNV Famotidine (Pepcid) 20 mg BID PO Last administered on 08/01/18at 08:23; Start 07/31/18 at 21:00 Prednisone (Prednisone) 20 mg DAILY PO ; Start 08/01/18 at 09:00; Status UNV Lisinopril (Prinivil) 20 mg DAILY PO Last administered on 08/01/18at 08:24; Start 08/01/18 at 09:00 Hydrochlorothiazide (Microzide) 12.5 mg DAILY PO Last administered on 08/01/18 08:23; Start 08/01/18 at 09:00 Varenicline (Chantix) 0.5 mg DAILY PO Last administered on 08/01/18at 13:26; Start 08/01/18 at 12:30 Diphenhydramine HCl (Benadryl) 25 mg PRN Q6HRS PRN IVP ITCHING; Start 08/01/18 at 12:30 Albuterol Sulfate (Ventolin Neb Soln) 2.5 mg PRN Q4HRS PRN NEB SHORTNESS OF BREATH Last administered on 08/01/18at 13:48; Start 08/01/18 at 13:45 Active Scripts Active Reported Prednisone 20 Mg Tablet 1 Tab PO DAILY Bupropion Xl (Bupropion Hcl) 150 Mg Tab.er.24h 1 Tab PO DAILYWBKFT Azithromycin Tablet (Azithromycin) 250 Mg Tablet 250 Mg PO DAILY Sumatriptan Succinate 100 Mg Tablet 0.5 Tab PO UD Ondansetron Odt (Ondansetron) 4 Mg Tab.rapdis 1 Tab PO PRN Q6-8HRS Lisinopril-Hctz 20-12.5 Mg Tab (Lisinopril/Hydrochlorothiazide) 1 Each Tablet 1 Tab PO DAILY Famotidine 20 Mg Tablet 20 Mg PO BID Allergies Allergies: Allergies Coded Allergies Type Severity Reaction Last Updated Verified coconut Allergy Intermediate Rash 07/31/18 Yes codeine Allergy Intermediate 07/31/18 Yes iodine Allergy Intermediate 07/31/18 Yes Latex, Natural Rubber Allergy Mild Itching 07/31/18 Yes Uncoded Allergies Type Severity Reaction Last Updated Verified scented hand soap Allergy Intermediate Rash 07/31/18 ROS Review of System The patient denies any associated fevers, chills, headache, ear pain, rhinorrhea , sore throat, stiff neck, productive cough, chest pain, shortness of breath, back or flank pain, abdominal pain, nausea, vomiting, diarrhea, constipation, dysuria, rash, numbness, weakness, tingling, incontinence, difficulty ambulating, or diaphoresis. Physical Exam Physical Exam General: Well developed, well nourished, no acute distress, well appearing HEENT: Pupils equally round and reactive to light, EOMI, no discharge, normal conjunctiva Neck: Supple, no nuchal rigidity, no JVD, trachea midline, no tenderness Cardiac: RRR, no murmurs, no gallops, no rubs Chest/Lungs: CTAB, no wheeze, no rhonchi, no crackles Abdomen: soft, non-distended, no guarding, no peritoneal signs, non-tender Back: No tenderness Extremities: no edema, pulses intact, non-tender,capillary refill <3 sec bilateral upper and lower extremities, Neuro: Alert and oriented x 4, no focal deficits, normal speech Vitals Vitals: Vital Signs Date Time Temp Pulse Resp B/P (MAP) Pulse Ox O2 Delivery O2 Flow Rate FiO2 08/01/18 15:00 97.8 80 18 101/45 (63) 97 Room Air 97.8 Labs Labs Laboratory Tests Test 07/31/18 11:09 07/31/18 11:25 07/31/18 20:50 White Blood Count 11.6 x10^3/uL (4.0-11.0) Red Blood Count 4.92 x10^6/uL (3.50-5.40) Hemoglobin 14.8 g/dL (12.0-15.5) Hematocrit 44.0 % (36.0-47.0) Mean Corpuscular Volume 90 fL (79-100) Mean Corpuscular Hemoglobin 30 pg (25-35) Mean Corpuscular Hemoglobin Concent 34 g/dL (31-37) Red Cell Distribution Width 14.6 % (11.5-14.5) Platelet Count 351 x10^3/uL (140-400) Neutrophils (%) (Auto) 67 % (31-73) Lymphocytes (%) (Auto) 25 % (24-48) Monocytes (%) (Auto) 6 % (0-9) Eosinophils (%) (Auto) 2 % (0-3) Basophils (%) (Auto) 1 % (0-3) Neutrophils # (Auto) 7.8 x10^3uL (1.8-7.7) Lymphocytes # (Auto) 2.9 x10^3/uL (1.0-4.8) Monocytes # (Auto) 0.7 x10^3/uL (0.0-1.1) Eosinophils # (Auto) 0.2 x10^3/uL (0.0-0.7) Basophils # (Auto) 0.1 x10^3/uL (0.0-0.2) Sodium Level 134 mmol/L (136-145) Potassium Level 4.0 mmol/L (3.5-5.1) Chloride Level 96 mmol/L (98-107) Carbon Dioxide Level 24 mmol/L (21-32) Anion Gap 14 (6-14) Blood Urea Nitrogen 18 mg/dL (7-20) Creatinine 1.2 mg/dL (0.6-1.0) Estimated GFR (Cockcroft-Gault) 46.3 BUN/Creatinine Ratio 15 (6-20) Glucose Level 86 mg/dL (70-99) Calcium Level 9.3 mg/dL (8.5-10.1) Magnesium Level 2.2 mg/dL (1.8-2.4) Total Bilirubin 0.4 mg/dL (0.2-1.0) Aspartate Amino Transf (AST/SGOT) 14 U/L (15-37) Alanine Aminotransferase (ALT/SGPT) 27 U/L (14-59) Alkaline Phosphatase 75 U/L (46-116) Creatine Kinase 86 U/L (26-192) Creatine Kinase MB (Mass) 2.2 ng/mL (0.0-3.6) Creatine Kinase MB Relative Index 2.6 % (0-4) Troponin I Quantitative < 0.017 ng/mL (0.000-0.055) Total Protein 7.7 g/dL (6.4-8.2) Albumin 4.1 g/dL (3.4-5.0) Albumin/Globulin Ratio 1.1 (1.0-1.7) Thyroid Stimulating Hormone (TSH) 2.814 uIU/mL (0.358-3.74) Ethyl Alcohol Level < 10 mg/dL (0-10) Urine Collection Type Unknown Urine Color Yellow Urine Clarity Clear Urine pH 6.0 Urine Specific [place] 1.015 Urine Protein Negative mg/dL (NEG-TRACE) Urine Glucose (UA) Negative mg/dL (NEG) Urine Ketones (Stick) Negative mg/dL (NEG) Urine Blood Trace (NEG) Urine Nitrite Negative (NEG) Urine Bilirubin Negative (NEG) Urine Urobilinogen Dipstick 0.2 mg/dL (0.2 mg/dL) Urine Leukocyte Esterase Trace (NEG) Urine RBC 1-2 /HPF (0-2) Urine WBC Occ /HPF (0-4) Urine Squamous Epithelial Cells Few /LPF Urine Bacteria Few /HPF (0-FEW) Urine Opiates Screen Neg (NEG) Neg (NEG) Urine Methadone Screen Neg (NEG) Neg (NEG) Urine Barbiturates Neg (NEG) Neg (NEG) Urine Phencyclidine Screen Neg (NEG) Neg (NEG) Urine Amphetamine/Methamphetamine Neg (NEG) Neg (NEG) Urine Benzodiazepines Screen Neg (NEG) Neg (NEG) Urine Cocaine Screen Neg (NEG) Neg (NEG) Urine Cannabinoids Screen Neg (NEG) Neg (NEG) Urine Ethyl Alcohol Neg (NEG) Neg (NEG) Laboratory Tests Test 07/31/18 20:50 Urine Opiates Screen Neg (NEG) Urine Methadone Screen Neg (NEG) Urine Barbiturates Neg (NEG) Urine Phencyclidine Screen Neg (NEG) Urine Amphetamine/Methamphetamine Neg (NEG) Urine Benzodiazepines Screen Neg (NEG) Urine Cocaine Screen Neg (NEG) Urine Cannabinoids Screen Neg (NEG) Urine Ethyl Alcohol Neg (NEG) KENZIE BUTCHER MD Aug 01, 2018 18:13
--- NOTE | 2018-08-01 23:01 | EEG ---
DATE OF SERVICE: 08/01/2018 EEG: #[id number]. OBJECTIVE: This is a 58-year-old female patient with history of syncopal episodes and confusional episodes. EEG was requested to help rule out seizure. METHODS: Twenty electrodes were applied according to the international 10-20 electrode placement system. EKG monitoring, hyperventilation, intermittent photic stimulation, monopolar and bipolar montages are routinely utilized. The record was obtained on a digital system with video monitoring. MEDICATION: No anti-seizure medication. FINDINGS: 1. Background: The patient was recorded in the awake, drowsy, and sleep states. The overall background amplitude is 5-15 microvolts. A posterior dominant rhythm of 8 Hz is observed with superimposed fast activity in Beta frequency. 2. Abnormalities: No specific epileptiform discharge or electrographic seizure is seen. No focal or diffuse slowing. 3. Activation: Hyperventilation was performed with good efforts and normal response. Intermittent photic stimulation was performed with photic driving. No specific epileptiform discharge or electrographic seizure induced by hyperventilation or intermittent photic stimulation. IMPRESSION: This EEG is a borderline study for the awake, drowsy, and sleep states. No focal, lateralizing, specific epileptiform discharge or electrographic seizure is seen. The fast activity in the Beta frequency may be medication effect. KENZIE BUTCHER MD DR: BENJAMIN/doni JOB#: [id number] / [id number] THOR
[2018-08-02 03:14] VITALS: BP 91/33
[2018-08-02 05:57] VITALS: BP 107/39
[2018-08-02] MEDS: ALBUTEROL SULFATE 2.5 MG/3 ML NEBU. NEB PRN (06:37)
[2018-08-02 07:00] VITALS: BP 112/60
[2018-08-02 07:15] LABS: CHOLESTEROL/HDL RATIO 4.4
--- NOTE | 2018-08-02 08:04 | CARD ---
MR#: [id number] Date of Study: 08/01/2018 Ordering Physician: YOCASTA PAUL, Referring Physician: Matty CEVALLOS: Jaelyn Hoover APPROVED REPORT EXAM: Two-dimensional and M-mode echocardiogram with Doppler and color Doppler. Other Information Quality : GoodHR: 72bpm Rhythm : NSR INDICATION Syncope RISK FACTORS Hypertension 2D DIMENSIONS RVDd2.9 (2.9-3.5cm)Left Atrium(2D)3.2 (1.6-4.0cm) IVSd0.9 (0.7-1.1cm)Aortic Root(2D)2.7 (2.0-3.7cm) LVDd4.5 (3.9-5.9cm)LVOT Diameter2.0 (1.8-2.4cm) PWd0.8 (0.7-1.1cm)LVDs2.5 (2.5-4.0cm) FS (%) 43.7 %SV70.0 ml LVEF(%)75.0 (>50%) Aortic Valve AoV Peak Imtiaz.158.1cm/sAoV VTI33.9cm AO Peak GR.10.0mmHgLVOT VTI 25.54cm AO Mean GR.6mmHg Mitral Valve MV E Eowqmtok87.1cm/sMV DECEL [id number] MV A Rktjanlb19.2cm/sE/A Ratio0.8 TDI Lateral E' P. V8.81cm/sMedial E' P. V7.59cm/s E/Lateral E'7.8E/Medial E'9.1 Tricuspid Valve TR P. Nsngehfp500xt/sRAP HKIRTYLF1edTj TR Peak Gr.[id number] Pulmonary Vein S1 Thdixvju49.4cm/sS2 Iydpwcjo36.16cm/s D2 Zibgnftp74.2cm/sPVa [id number] LEFT VENTRICLE The left ventricle is normal size. There is normal left ventricular wall thickness. The left ventricu lar systolic function is normal. The Ejection Fraction is 65%. There is normal LV segmental wall maddy on. Transmitral Doppler flow pattern is Grade I-abnormal relaxation pattern. RIGHT VENTRICLE The right ventricle is normal size. There is normal right ventricular wall thickness. The right ventr icular systolic function is normal. ATRIA The left atrium size is normal. The right atrium size is normal. The interatrial septum is intact wit h no evidence for an atrial septal defect or patent foramen ovale as noted on 2-D or Doppler imaging. AORTIC VALVE The aortic valve is not well visualized. Doppler and Color Flow revealed no significant aortic regurg itation. There is no significant aortic valvular stenosis. MITRAL VALVE The mitral valve is normal in structure and function. There is no evidence of mitral valve prolapse. There is no mitral valve stenosis. Doppler and Color Flow revealed no mitral valve regurgitation note d. TRICUSPID VALVE The tricuspid valve is normal in structure and function. Doppler and Color Flow revealed trace tricus pid valve regurgitation noted with an estimated PAP of 26 mmHg. There is no tricuspid valve stenosis. PULMONIC VALVE The pulmonic valve is not well visualized. Doppler and Color Flow revealed no pulmonic valvular regur gitation. GREAT VESSELS The aortic root is normal in size. The IVC is normal in size and collapses >50% with inspiration. PERICARDIAL EFFUSION There is no evidence of significant pericardial effusion. Critical Notification Critical Value: No <Conclusion> The left ventricular systolic function is normal. The Ejection Fraction is 65%. There is normal LV segmental wall motion. Transmitral Doppler flow pattern is Grade I-abnormal relaxation pattern. Trace tricuspid valve regurgitation noted with an estimated PAP of 26 mmHg. There is no evidence of significant pericardial effusion. Signed by : Arslan Flores, Electronically Approved : 08/02/2018 08:04:17
--- NOTE | 2018-08-02 08:28 | NUR ---
SW following pt for anticipated dc needs. Chart reviewed. Pt lives at home with friends. Pt was seen by PT/OT and does not have skilled needs. No other dc recommendation noted at this time.
--- NOTE | 2018-08-02 08:47 | RAD ---
Examination: DOPPLER CAROTID BILAT History: NEAR SYNCOPE Comparison/Correlation: None Technique: Duplex sonography of the cervical portion of both carotid arteries was performed. Real-time grayscale, color flow Doppler, and Doppler spectral waveform analysis is performed. Findings: Right side: Peak systolic flow velocity of the CCA is 123 cm/sec. Peak systolic flow velocity of the ICA is 135 cm/sec. The ICA/CCA ratio is 1.35. Peak end diastolic flow velocity of the ICA is 37 cm/sec. The peak systolic velocity of the ECA is 110 cm/sec. No significant plaque formation is identified. Left side: Peak systolic flow velocity of the CCA is 126 cm/sec. Peak systolic flow velocity of the ICA is 147 cm/sec. The ICA/CCA ratio is 1.4. Peak end diastolic flow velocity of the ICA is 47 cm/sec. Peak systolic flow velocity of the ECA is 99 cm/sec. No significant plaque formation is identified. Vertebral arteries: Bilateral vertebral arteries demonstrate antegrade flow. IMPRESSION: No hemodynamically significant internal carotid artery stenosis is definitely identified. Mildly elevated internal carotid artery velocity bilaterally noted corresponding to 50 percent to 69 percent stenosis but internal carotid artery to common carotid artery ratios are well within normal range. No visualized stenosis or significant plaque. PQRS Compliance Statement - Stenosis calculations for CT, MR and conventional angiography are based upon measurement of the distal ICA diameter in accordance with the NASCET methodology. Stenosis calculations for carotid ultrasound studies are derived from validated velocity criteria which are known to correlate with the NASCET methodology. Electronically signed by: Jose C Sanford MD (08/02/2018 8:44 AM) [facility]
[2018-08-02] MEDS: VARENICLINE 0.5 MG TABLET. PO SCH (08:58)
[2018-08-02] MEDS: FAMOTIDINE 20 MG TABLET. PO SCH ×2 (08:58→09:00)
[2018-08-02] MEDS: hydroCHLOROthiazide 12.5 MG CAPSULE PO SCH (09:00)
[2018-08-02] MEDS: LISINOPRIL 20 MG TABLET PO SCH (09:00)
[2018-08-02] MEDS: diazePAM 5 MG TABLET PO PRN (10:07)
--- NOTE | 2018-08-02 10:58 | PDOC ---
PROGRESS NOTES Chief Complaint Chief Complaint states she was started on Wellbutrin to quit smoking and has developed little bit of a rash on the right extremity, started 5 days ago. It has been improving, but 07/31 she felt dizzy and lightheaded and had a syncopal episode. she notes a hx of chest tightness when walking one flight of stairs, has a 45 pk year smoking hx History of Present Illness History of Present Illness ASSESSMENT AND PLAN: syncope. hx hypertension GERD HX TOBACCO ABUSE atypical chest tightness bipolar disease anxiety disorder plan EEG// WNL 08/01 admitted. tele consult Neurology. home meds, hold Wellbutrin PT, OT, DVT prophylaxis. Full code orthostatic bp and pulse. ECHO DOPPLER CAROTIDS REVIEWED Cardiology consult, re syncope, atypical chest discomfort OK WITH D/C CONT LISINOPRIL 10MG PO DAILY Vitals Vitals Vital Signs Date Time Temp Pulse Resp B/P (MAP) Pulse Ox O2 Delivery O2 Flow Rate FiO2 08/02/18 09:00 80 112/60 08/02/18 07:00 97.5 18 99 Room Air 97.5 Physical Exam Physical Exam LUNGS: Clear. ABDOMEN: Soft. EXTREMITIES: No edema. SKIN: rash on the right arm. ENDOCRINE: No thyromegaly. LYMPHATICS: No cervical nodes. HEMATOPOIETIC: No bruising. PSYCHIATRIC: She is anxious. General: Alert, Oriented X3, Cooperative, No acute distress Heart: Regular rate (SR), Normal S1, Normal S2, Other (2/6 systolic murmur to LLS border) Lungs: Clear Abdomen: Normal bowel sounds, Soft, No tenderness Extremities: No cyanosis, No edema Skin: No breakdown, No significant lesion Labs LABS Laboratory Tests Test 08/02/18 05:00 Triglycerides Level 77 mg/dL (0-150) Cholesterol Level 160 mg/dL (0-200) LDL Cholesterol, Calculated 109 mg/dL (0-100) VLDL Cholesterol, Calculated 15 mg/dL (0-40) Non-HDL Cholesterol Calculated 124 mg/dL (0-129) HDL Cholesterol 36 mg/dL (40-60) Cholesterol/HDL Ratio 4.4 Assessment and Plan Assessmemt and Plan Problems Medical Problems: (1) History of bipolar disorder Status: Acute (2) Skin rash Status: Acute (3) Syncope Status: Acute (4) Tobacco abuse Status: Acute Comment Review of Relevant I have reviewed the following items zina (where applicable) has been applied. Labs Laboratory Tests Test 07/31/18 11:09 07/31/18 11:25 07/31/18 20:50 08/02/18 05:00 White Blood Count 11.6 x10^3/uL (4.0-11.0) Red Blood Count 4.92 x10^6/uL (3.50-5.40) Hemoglobin 14.8 g/dL (12.0-15.5) Hematocrit 44.0 % (36.0-47.0) Mean Corpuscular Volume 90 fL (79-100) Mean Corpuscular Hemoglobin 30 pg (25-35) Mean Corpuscular Hemoglobin Concent 34 g/dL (31-37) Red Cell Distribution Width 14.6 % (11.5-14.5) Platelet Count 351 x10^3/uL (140-400) Neutrophils (%) (Auto) 67 % (31-73) Lymphocytes (%) (Auto) 25 % (24-48) Monocytes (%) (Auto) 6 % (0-9) Eosinophils (%) (Auto) 2 % (0-3) Basophils (%) (Auto) 1 % (0-3) Neutrophils # (Auto) 7.8 x10^3uL (1.8-7.7) Lymphocytes # (Auto) 2.9 x10^3/uL (1.0-4.8) Monocytes # (Auto) 0.7 x10^3/uL (0.0-1.1) Eosinophils # (Auto) 0.2 x10^3/uL (0.0-0.7) Basophils # (Auto) 0.1 x10^3/uL (0.0-0.2) Sodium Level 134 mmol/L (136-145) Potassium Level 4.0 mmol/L (3.5-5.1) Chloride Level 96 mmol/L (98-107) Carbon Dioxide Level 24 mmol/L (21-32) Anion Gap 14 (6-14) Blood Urea Nitrogen 18 mg/dL (7-20) Creatinine 1.2 mg/dL (0.6-1.0) Estimated GFR (Cockcroft-Gault) 46.3 BUN/Creatinine Ratio 15 (6-20) Glucose Level 86 mg/dL (70-99) Calcium Level 9.3 mg/dL (8.5-10.1) Magnesium Level 2.2 mg/dL (1.8-2.4) Total Bilirubin 0.4 mg/dL (0.2-1.0) Aspartate Amino Transf (AST/SGOT) 14 U/L (15-37) Alanine Aminotransferase (ALT/SGPT) 27 U/L (14-59) Alkaline Phosphatase 75 U/L (46-116) Creatine Kinase 86 U/L (26-192) Creatine Kinase MB (Mass) 2.2 ng/mL (0.0-3.6) Creatine Kinase MB Relative Index 2.6 % (0-4) Troponin I Quantitative < 0.017 ng/mL (0.000-0.055) Total Protein 7.7 g/dL (6.4-8.2) Albumin 4.1 g/dL (3.4-5.0) Albumin/Globulin Ratio 1.1 (1.0-1.7) Thyroid Stimulating Hormone (TSH) 2.814 uIU/mL (0.358-3.74) Ethyl Alcohol Level < 10 mg/dL (0-10) Urine Collection Type Unknown Urine Color Yellow Urine Clarity Clear Urine pH 6.0 Urine Specific [place] 1.015 Urine Protein Negative mg/dL (NEG-TRACE) Urine Glucose (UA) Negative mg/dL (NEG) Urine Ketones (Stick) Negative mg/dL (NEG) Urine Blood Trace (NEG) Urine Nitrite Negative (NEG) Urine Bilirubin Negative (NEG) Urine Urobilinogen Dipstick 0.2 mg/dL (0.2 mg/dL) Urine Leukocyte Esterase Trace (NEG) Urine RBC 1-2 /HPF (0-2) Urine WBC Occ /HPF (0-4) Urine Squamous Epithelial Cells Few /LPF Urine Bacteria Few /HPF (0-FEW) Urine Opiates Screen Neg (NEG) Neg (NEG) Urine Methadone Screen Neg (NEG) Neg (NEG) Urine Barbiturates Neg (NEG) Neg (NEG) Urine Phencyclidine Screen Neg (NEG) Neg (NEG) Urine Amphetamine/Methamphetamine Neg (NEG) Neg (NEG) Urine Benzodiazepines Screen Neg (NEG) Neg (NEG) Urine Cocaine Screen Neg (NEG) Neg (NEG) Urine Cannabinoids Screen Neg (NEG) Neg (NEG) Urine Ethyl Alcohol Neg (NEG) Neg (NEG) Triglycerides Level 77 mg/dL (0-150) Cholesterol Level 160 mg/dL (0-200) LDL Cholesterol, Calculated 109 mg/dL (0-100) VLDL Cholesterol, Calculated 15 mg/dL (0-40) Non-HDL Cholesterol Calculated 124 mg/dL (0-129) HDL Cholesterol 36 mg/dL (40-60) Cholesterol/HDL Ratio 4.4 Laboratory Tests Test 08/02/18 05:00 Triglycerides Level 77 mg/dL (0-150) Cholesterol Level 160 mg/dL (0-200) LDL Cholesterol, Calculated 109 mg/dL (0-100) VLDL Cholesterol, Calculated 15 mg/dL (0-40) Non-HDL Cholesterol Calculated 124 mg/dL (0-129) HDL Cholesterol 36 mg/dL (40-60) Cholesterol/HDL Ratio 4.4 Microbiology 07/31/18 Urine Culture - Final, Complete 07/31/18 Urine Culture Result 1 (LAZARO) - Final, Complete Medications Current Medications Sodium Chloride 500 ml @ 500 mls/hr Q1H IV Last administered on 07/31/18at 11:35 ; Start 07/31/18 at 11:00; Stop 07/31/18 at 11:35; Status DC Lorazepam (Ativan) 1 mg PRN Q4HRS PRN PO ANXIETY / AGITATION; Start 07/31/18 at 17:00; Stop 07/31/18 at 17:07; Status DC Diazepam (Valium) 5 mg PRN Q6HRS PRN PO ANXIETY Last administered on 08/02/18at 10:07; Start 07/31/18 at 17:15 Azithromycin (Zithromax) 250 mg DAILY PO ; Start 08/01/18 at 09:00; Status UNV Famotidine (Pepcid) 20 mg BID PO Last administered on 08/01/18at 20:16; Start 07/31/18 at 21:00 Prednisone (Prednisone) 20 mg DAILY PO ; Start 08/01/18 at 09:00; Status UNV Lisinopril (Prinivil) 20 mg DAILY PO Last administered on 08/01/18at 08:24; Start 08/01/18 at 09:00 Hydrochlorothiazide (Microzide) 12.5 mg DAILY PO Last administered on 08/01/18at 08:23; Start 08/01/18 at 09:00 Varenicline (Chantix) 0.5 mg DAILY PO Last administered on 08/02/18at 08:58; Start 08/01/18 at 12:30 Diphenhydramine HCl (Benadryl) 25 mg PRN Q6HRS PRN IVP ITCHING; Start 08/01/18 at 12:30 Albuterol Sulfate (Ventolin Neb Soln) 2.5 mg PRN Q4HRS PRN NEB SHORTNESS OF BREATH Last administered on 08/02/18at 06:37; Start 08/01/18 at 13:45 Active Scripts Active Reported Prednisone 20 Mg Tablet 1 Tab PO DAILY Bupropion Xl (Bupropion Hcl) 150 Mg Tab.er.24h 1 Tab PO DAILYWBKFT Azithromycin Tablet (Azithromycin) 250 Mg Tablet 250 Mg PO DAILY Sumatriptan Succinate 100 Mg Tablet 0.5 Tab PO UD Ondansetron Odt (Ondansetron) 4 Mg Tab.rapdis 1 Tab PO PRN Q6-8HRS Lisinopril-Hctz 20-12.5 Mg Tab (Lisinopril/Hydrochlorothiazide) 1 Each Tablet 1 Tab PO DAILY Famotidine 20 Mg Tablet 20 Mg PO BID Vitals/I & O Vital Sign - Last 24 Hours 08/01/18 08/01/18 08/01/18 08/01/18 13:50 15:00 15:00 15:05 Temp 97.8 97.8 Pulse 80 69 73 Resp 18 B/P (MAP) 101/45 (63) 99/41 (60) 115/54 (74) Pulse Ox 96 97 O2 Delivery Room Air Room Air 08/01/18 08/01/18 08/01/18 08/01/18 15:10 19:25 20:00 20:23 Temp 98.0 98.0 Pulse 78 75 Resp 18 B/P (MAP) 112/48 (69) 94/38 (56) Pulse Ox 97 96 O2 Delivery Room Air Room Air Room Air 08/01/18 08/02/18 08/02/18 08/02/18 23:17 03:14 05:57 06:39 Temp 97.9 98.1 97.9 98.1 Pulse 70 65 Resp 18 18 B/P (MAP) 87/34 (51) 91/33 (52) 107/39 (61) Pulse Ox 97 97 97 O2 Delivery Room Air Room Air Room Air 08/02/18 08/02/18 07:00 09:00 Temp 97.5 97.5 Pulse 80 80 Resp 18 B/P (MAP) 112/60 (77) 112/60 Pulse Ox 99 O2 Delivery Room Air Intake and Output 08/01/18 08/01/18 08/02/18 15:00 23:00 07:00 Intake Total 600 ml 300 ml 640 ml Balance 600 ml 300 ml 640 ml YOCASTA PAUL MD Aug 02, 2018 10:58
[2018-08-02 11:00] VITALS: BP 106/47
--- NOTE | 2018-08-02 11:08 | PDOC ---
CARDIO Progress Notes Date and Time Date of Service 08/02/18 Time of Evaluation 1100 Subjective Subjective: No Chest Pain, No shortness of breath, No Palpitations, No Dizziness, Other (Had "reaction" to Chantix) Vitals Vitals Vital Signs Date Time Temp Pulse Resp B/P (MAP) Pulse Ox O2 Delivery O2 Flow Rate FiO2 08/02/18 09:00 80 112/60 08/02/18 07:00 97.5 18 99 Room Air 97.5 Weight Weight [ ] Input and Output Intake and Output Intake and Output 08/02/18 07:00 Intake Total 1540 ml Balance 1540 ml Intake Oral 1540 ml # Voids 2 Laboratory Labs Laboratory Tests Test 08/02/18 05:00 Triglycerides Level 77 mg/dL (0-150) Cholesterol Level 160 mg/dL (0-200) LDL Cholesterol, Calculated 109 mg/dL (0-100) VLDL Cholesterol, Calculated 15 mg/dL (0-40) Non-HDL Cholesterol Calculated 124 mg/dL (0-129) HDL Cholesterol 36 mg/dL (40-60) Cholesterol/HDL Ratio 4.4 Microbiology Micro Microbiology 07/31/18 Urine Culture - Final, Complete 07/31/18 Urine Culture Result 1 (LAAZRO) - Final, Complete Physical Exam HEENT: Neck Supple W Full Motion Chest: Symmetric LUNGS: Clear to Auscultation Heart: S1S2, RRR Extremities: No Edema Neurology: alert, oriented, follow commands Assessment Assessment 1. Presyncope: EKG SR with nonspecific ST-T wave changes. anxiety contributing. BP moderately low, but negative for orthostasis. Echo revealed preserved LV systolic function. 2. Migraine: neurology has been consulted. 3. Tobaccoism; recently on Wellbutrin for tobacco cessation 4. Anxiety disorder 5. HTN; BP marginal. Lisinopril/HCTZ held and BP remains on low end. Patient has made significant lifestyle changes over the last 6 months. Has lost 40lbs and restricts her Na intake. Reports SBP is now generally in the low 90's. Recommendations Discontinue lisinopril/HCTZ. Patient is to monitor blood pressure daily. If SBP consistently >120. She is to resume lisinopril 10mg PO q day. Reinforced smoking cessation DESTIN DAIGLE APRN Aug 02, 2018 11:08
--- NOTE | 2018-08-02 14:37 | PDOC ---
PROGRESS NOTES Assessment Assessment Syncopal spell. Confusional episode. Allergic reaction, skin rash and itching. Bipolar disorder. HTN. Asthma. Smoking. RECOMMENDATIONS/PLAN: Treat medical diseases. Consulted cardiology. EEG on 08/01/18: No seizure activity.. Carotid A US + Doppler: No hemodynamically stenosis. Maybe in 50-69% range per report. HISTORY OF PRESENT ILLNESS This is an 58-y-old female patient with complains of lightheadedness and fainting spell. She tried to quit smoking and was started on Wellbutrin last week and had to stop it after 3 days due to right arm rash then whole body rash and itching. She also had cognitive side effects as confusion. She had another episode of lightheadedness and syncopal spell on 07/31/18 but no passing out. She stated on 08/02/18 she was doing fine. PAST MEDICAL HISTORY Cardiovascular: HTN CENTRAL NERVOUS SYSTEM: Migraine, TIA (?) GI: GERD Psych: Anxiety, Depression Musculoskeletal: Osteoarthritis Rheumatologic: Fibromyalgia PAST SURGICAL HISTORY Tubal Ligation, Tonsillectomy FAMILY HISTORY Heart Disease ALLERGIES Coded Allergies: coconut (Verified Allergy, Intermediate, Rash, 07/31/18) codeine (Verified Allergy, Intermediate, 07/31/18) iodine (Verified Allergy, Intermediate, 07/31/18) Latex, Natural Rubber (Verified Allergy, Mild, Itching, 07/31/18) Uncoded Allergies: scented hand soap (Allergy, Intermediate, Rash, 07/31/18) SOCIAL HISTORY Smoke: 1 pack per day (>35 yrs) ALCOHOL: none Drugs: None Lives: with Family MEDICATIONS: Refer to [facility] REVIEW OF SYSTEMS: Constitutional: No malnutrition, weight loss, cachexia. Head: No traumatic brain or head injury. Skin: No edema, or rash. Ear: No infection. Eyes: No vision loss or color blindness. Nose: No bleeding or purulent discharges. Hearing: No hearing decrease. Neck: No injury. Breast: No history of cancer, masses,or discharges. Cardiac: HTN. Pulmonary: Asthma, smoking.. GI: No GI ulcer, GI bleeding. Urinary/genital: UTI. Endocrinologic: No cousin face, craniofacial dysmorphism, polydactyly. Skeletomuscular: No muscular atrophy, deformity. Neurological: see HP. Psychiatric: Denies drug use/abuse. Otherwise, not [id number] review of systems. PHYSICAL EXAMINATION: General appearance is in anxious. HEENT: Normocephalic and nontraumatic. Eyes, nose, ears, and throat are unremarkable. Neck is supple. No lymphadenopathy. No crepitus. Cardiovascular: S1, S2, regular rate and rhythm. Pulmonary: Clear to auscultation bilaterally. Abdomen: Bowel sounds are positive. Abdomen is soft, nontender, and nondistended. Extremities: No rash, lesions, or edema. No restriction of range of motion NEUROLOGICAL EXAMINATION: Alert Oriented to time, place and person. PERRL. EOMI. CN: no focal findings. Muscle tone: within normal. Muscle strength: 5 DTR: 2 Plantar reflex: Flexor response bilaterally Gait: At her baseline normal. Sensory exam: no abnormal findings. No cerebellar signs elicited. F-T-N test accurate. Objective Objective Vital Signs Date Time Temp Pulse Resp B/P (MAP) Pulse Ox O2 Delivery O2 Flow Rate FiO2 08/02/18 11:00 97.9 78 16 106/47 (66) 97 Room Air 97.9 Intake and Output 08/02/18 06:59 Intake Total 1540 ml Balance 1540 ml Intake Oral 1540 ml # Voids 2 Vitals Signs Vitals VS - Last 72 Hours, by Label Date Time Temp Pulse Resp B/P (MAP) Pulse Ox O2 Delivery O2 Flow Rate FiO2 08/02/18 11:00 97.9 78 16 106/47 (66) 97 Room Air 97.9 08/02/18 09:00 80 112/60 08/02/18 08:00 Room Air 08/02/18 07:00 97.5 80 18 112/60 (77) 99 Room Air 97.5 08/02/18 06:39 97 Room Air 08/02/18 05:57 107/39 (61) 08/02/18 03:14 98.1 65 18 91/33 (52) 97 Room Air 98.1 08/01/18 23:17 97.9 70 18 87/34 (51) 97 Room Air 97.9 08/01/18 20:23 96 Room Air 08/01/18 20:00 Room Air 08/01/18 19:25 98.0 75 18 94/38 (56) 97 Room Air 98.0 08/01/18 15:10 78 112/48 (69) 08/01/18 15:05 73 115/54 (74) 08/01/18 15:00 69 99/41 (60) 08/01/18 15:00 97.8 80 18 101/45 (63) 97 Room Air 97.8 08/01/18 13:50 96 Room Air 08/01/18 10:51 97.8 72 18 106/53 (70) 97 Room Air 97.8 08/01/18 08:24 65 139/64 08/01/18 08:00 97.9 65 18 139/64 (89) 98 Room Air 97.9 08/01/18 08:00 Room Air Laboratory Laboratory Laboratory Tests Test 08/02/18 05:00 Triglycerides Level 77 mg/dL (0-150) Cholesterol Level 160 mg/dL (0-200) LDL Cholesterol, Calculated 109 mg/dL (0-100) VLDL Cholesterol, Calculated 15 mg/dL (0-40) Non-HDL Cholesterol Calculated 124 mg/dL (0-129) HDL Cholesterol 36 mg/dL (40-60) Cholesterol/HDL Ratio 4.4 Microbiology 07/31/18 Urine Culture - Final, Complete 07/31/18 Urine Culture Result 1 (LAZARO) - Final, Complete Comment Review of Relevant I have reviewed the following items zina (where applicable) has been applied. KENZIE BUTCHER MD Aug 02, 2018 14:37
[2018-08-02 15:00] VITALS: BP 114/50
--- NOTE | 2018-08-02 17:01 | PDOC3 ---
Discharge Summary Date of Admission: Jul 31, 2018 Date of Discharge: Aug 02, 2018 Follow-Up: 3-5 days Admitting Diagnosis comment: Chief Complaint Chief Complaint states she was started on Wellbutrin to quit smoking and has developed little bit of a rash on the right extremity, started 5 days ago. It has been improving, but 07/31 she felt dizzy and lightheaded and had a syncopal episode. she notes a hx of chest tightness when walking one flight of stairs, has a 45 pk year smoking hx History of Present Illness History of Present Illness DISCHARGE DX syncope. hx hypertension GERD HX TOBACCO ABUSE atypical chest tightness bipolar disease anxiety disorder plan EEG// WNL 08/01 admitted. tele consult Neurology. home meds, hold Wellbutrin PT, OT, DVT prophylaxis. Full code orthostatic bp and pulse. ECHO DOPPLER CAROTIDS REVIEWED NO CRITICAL STENOSIS Cardiology consult, re syncope, atypical chest discomfort OK WITH D/C CONT LISINOPRIL 10MG PO DAILY Vitals Vitals Vital Signs Date Time Temp Pulse Resp B/P (MAP) Pulse Ox O2 Delivery O2 Flow Rate FiO2 08/02/18 09:00 80 112/60 08/02/18 07:00 97.5 18 99 Room Air 97.5 Physical Exam Physical Exam LUNGS: Clear. ABDOMEN: Soft. EXTREMITIES: No edema. SKIN: rash on the right arm. ENDOCRINE: No thyromegaly. LYMPHATICS: No cervical nodes. HEMATOPOIETIC: No bruising. PSYCHIATRIC: She is anxious. General: Alert, Oriented X3, Cooperative, No acute distress Heart: Regular rate (SR), Normal S1, Normal S2, Other (2/6 systolic murmur to LLS border) Lungs: Clear Abdomen: Normal bowel sounds, Soft, No tenderness Extremities: No cyanosis, No edema Skin: No breakdown, No significant lesion FINAL DIAGNOSIS Problems Medical Problems: (1) History of bipolar disorder Status: Acute (2) Skin rash Status: Acute (3) Syncope Status: Acute (4) Tobacco abuse Status: Acute Brief Hospital Course Ms. Peng is a 58 old [sex] who presented with [SYNCOPE ] CONDITION AT DISCHARGE: Improved Discharge Medications Current Medications Sodium Chloride 500 ml @ 500 mls/hr Q1H IV Last administered on 07/31/18at 11:35 ; Start 07/31/18 at 11:00; Stop 07/31/18 at 11:35; Status DC Lorazepam (Ativan) 1 mg PRN Q4HRS PRN PO ANXIETY / AGITATION; Start 07/31/18 at 17:00; Stop 07/31/18 at 17:07; Status DC Diazepam (Valium) 5 mg PRN Q6HRS PRN PO ANXIETY Last administered on 08/02/18at 10:07; Start 07/31/18 at 17:15 Azithromycin (Zithromax) 250 mg DAILY PO ; Start 08/01/18 at 09:00; Status UNV Famotidine (Pepcid) 20 mg BID PO Last administered on 08/01/18at 20:16; Start 07/31/18 at 21:00 Prednisone (Prednisone) 20 mg DAILY PO ; Start 08/01/18 at 09:00; Status UNV Lisinopril (Prinivil) 20 mg DAILY PO Last administered on 08/01/18at 08:24; Start 08/01/18 at 09:00 Hydrochlorothiazide (Microzide) 12.5 mg DAILY PO Last administered on 08/01/18at 08:23; Start 08/01/18 at 09:00 Varenicline (Chantix) 0.5 mg DAILY PO Last administered on 08/02/18at 08:58; Start 08/01/18 at 12:30 Diphenhydramine HCl (Benadryl) 25 mg PRN Q6HRS PRN IVP ITCHING; Start 08/01/18 at 12:30 Albuterol Sulfate (Ventolin Neb Soln) 2.5 mg PRN Q4HRS PRN NEB SHORTNESS OF BREATH Last administered on 08/02/18at 06:37; Start 08/01/18 at 13:45 Active Scripts Active Reported Prednisone 20 Mg Tablet 1 Tab PO DAILY Bupropion Xl (Bupropion Hcl) 150 Mg Tab.er.24h 1 Tab PO DAILYWBKFT Azithromycin Tablet (Azithromycin) 250 Mg Tablet 250 Mg PO DAILY Sumatriptan Succinate 100 Mg Tablet 0.5 Tab PO UD Ondansetron Odt (Ondansetron) 4 Mg Tab.rapdis 1 Tab PO PRN Q6-8HRS Lisinopril-Hctz 20-12.5 Mg Tab (Lisinopril/Hydrochlorothiazide) 1 Each Tablet 1 Tab PO DAILY Famotidine 20 Mg Tablet 20 Mg PO BID Vital Signs Vital Signs Date Time Temp Pulse Resp B/P (MAP) Pulse Ox O2 Delivery O2 Flow Rate FiO2 08/02/18 15:00 97.7 66 18 114/50 (71) 99 Room Air 97.7 Labs Laboratory Tests Test 07/31/18 20:50 08/02/18 05:00 Urine Opiates Screen Neg (NEG) Urine Methadone Screen Neg (NEG) Urine Barbiturates Neg (NEG) Urine Phencyclidine Screen Neg (NEG) Urine Amphetamine/Methamphetamine Neg (NEG) Urine Benzodiazepines Screen Neg (NEG) Urine Cocaine Screen Neg (NEG) Urine Cannabinoids Screen Neg (NEG) Urine Ethyl Alcohol Neg (NEG) Triglycerides Level 77 mg/dL (0-150) Cholesterol Level 160 mg/dL (0-200) LDL Cholesterol, Calculated 109 mg/dL (0-100) VLDL Cholesterol, Calculated 15 mg/dL (0-40) Non-HDL Cholesterol Calculated 124 mg/dL (0-129) HDL Cholesterol 36 mg/dL (40-60) Cholesterol/HDL Ratio 4.4 Laboratory Tests Test 08/02/18 05:00 Triglycerides Level 77 mg/dL (0-150) Cholesterol Level 160 mg/dL (0-200) LDL Cholesterol, Calculated 109 mg/dL (0-100) VLDL Cholesterol, Calculated 15 mg/dL (0-40) Non-HDL Cholesterol Calculated 124 mg/dL (0-129) HDL Cholesterol 36 mg/dL (40-60) Cholesterol/HDL Ratio 4.4 Allergies Allergies Coded Allergies Type Severity Reaction Last Updated Verified coconut Allergy Intermediate Rash 07/31/18 Yes codeine Allergy Intermediate 07/31/18 Yes iodine Allergy Intermediate 07/31/18 Yes Latex, Natural Rubber Allergy Mild Itching 07/31/18 Yes Uncoded Allergies Type Severity Reaction Last Updated Verified scented hand soap Allergy Intermediate Rash 07/31/18 Disposition/Orders: D/C to Home Patient Instructions D/C PLANNING 37 MIN YOCASTA PAUL MD Aug 02, 2018 17:01
[2018-08-02] MEDS ORDERED: VARE0.5T PO (17:03)
--- NOTE | 2018-08-02 17:04 | DISCH ---
DISCHARGE INSTRUCTIONS Condition on Discharge Condition on Discharge: Stable Activity After Discharge Activity Instructions for Disc: Activity as tolerated Exercise Instruction after Dis: Walk 10 min, 3 x per day Driving Instructions after Dis: Do not drive Diet after Discharge Diet after Discharge: Cardiac Checks after Discharge Checks after discharge: Check blood press - daily Contacting the DR. after DC Call your doctor for: If your condition worsens YOCASTA PAUL MD Aug 02, 2018 17:04
--- NOTE | 2018-08-02 18:40 | NUR ---
Discharge Note: LEMUEL BANGURA [address] [place] [id number] Discharge instructions and discharge home medications reviewed with Patient and a copy given. All questions have been answered and understanding verbalized. The following instructions and handouts were given: Diet, activity, medication list and follow up instructions provided to patient. Discontinued lines and drains: Peripheral IV discontinued and catheter intact. Patient discharged to Home or Self Care with Friend via Ambulated
== END 2018-08-02 18:40 | disposition home or self-care (01) | DRG 73 ==
LOC: ER 10:03 → 6 SOUTH 12:57
PROVIDERS: ADMIT Internal Medicine; ATTEND Internal Medicine
DX: G90.8 Other disorders of autonomic nervous system (principal); G93.41 Metabolic encephalopathy; R07.89 Other chest pain; I10 Essential (primary) hypertension; F31.9 Bipolar disorder, unspecified; F41.9 Anxiety disorder, unspecified; F17.210 Nicotine dependence, cigarettes, uncomplicated; G43.909 Migraine, unspecified, not intractable, without status migrainosus; R21 Rash and other nonspecific skin eruption; J44.9 Chronic obstructive pulmonary disease, unspecified; K21.9 Gastro-esophageal reflux disease without esophagitis; M79.7 Fibromyalgia; Z86.73 Personal history of transient ischemic attack (TIA), and cerebral infarction without residual deficits; M19.90 Unspecified osteoarthritis, unspecified site; Z91.040 Latex allergy status; Z88.8 Allergy status to other drugs, medicaments and biological substances; Z91.048 Other nonmedicinal substance allergy status; Z90.49 Acquired absence of other specified parts of digestive tract; Z98.51 Tubal ligation status; Z71.6 Tobacco abuse counseling; Z82.49 Family history of ischemic heart disease and other diseases of the circulatory system
CPT/HCPCS: 36415; 71045; 80053; 80061; 80307; 81001; 82553; 83735; 84443; 84484; 85025; 87086; 93005; 93306; 93880; 94640; 95816; 96360; 99406; G0480; J7040; J7613; 99285-25

== ENCOUNTER 2019-11-26 16:16 | Emergency (ER) | payer OTHER ==
[~2019-11-26] VITALS: Ht 162.6 cm; Wt 77.0 kg
[~2019-11-26 16:16] MED LIST: AZIT250T6 PO; BUPR150T6 PO; FAMO20TA5 PO; LISI1TAB37 PO; ONDA4TAB12 PO; PRED20TA PO; SUMA100T4 PO; VARE0.5T PO
--- NOTE | 2019-11-26 18:28 | PHYS DOC ---
Past Medical History Past Medical History: Anxiety, Bipolar, Depression, Fibromyalgia, Hypertension Past Surgical History: Tonsillectomy, Tubal ligation Smoking Status: Current Every Day Smoker Alcohol Use: None Drug Use: None General Adult EDM: Chief Complaint: ANIMAL BITE HPI: HPI: Patient is a 59 year old who presents for rabies immunizations. Patient was bit on her left knee on November 15 and has been followed with her primary care doctor for but they are unsure if they have the right dog and so her primary care doctor sent her in for rabies vaccinations. Patient denies any complaints. No fevers no pain and no symptoms of rabies. Review of Systems: Review of Systems: Constitutional: Denies fever or chills. [] Eyes: Denies change in visual acuity. [] HENT: Denies nasal congestion or sore throat. [] Respiratory: Denies cough or shortness of breath. [] Cardiovascular: Denies chest pain or edema. [] GI: Denies abdominal pain, nausea, vomiting, bloody stools or diarrhea. [] : Denies dysuria. [] Musculoskeletal: Denies back pain or joint pain. [] Integument: Denies rash. [] Neurologic: Denies headache, focal weakness or sensory changes. [] Endocrine: Denies polyuria or polydipsia. [] Lymphatic: Denies swollen glands. [] Psychiatric: Denies depression or anxiety. [] Heart Score: Risk Factors: Risk Factors: DM, Current or recent (<one month) smoker, HTN, HLP, family history of CAD, obesity. Risk Scores: Score 0 - 3: 2.5% MACE over next 6 weeks - Discharge Home Score 4 - 6: 20.3% MACE over next 6 weeks - Admit for Clinical Observation Score 7 - 10: 72.7% MACE over next 6 weeks - Early Invasive Strategies Allergies: Allergies: Allergies Coded Allergies Type Severity Reaction Last Updated Verified coconut Allergy Intermediate Rash 07/31/18 Yes codeine Allergy Intermediate 07/31/18 Yes iodine Allergy Intermediate 07/31/18 Yes Latex, Natural Rubber Allergy Mild Itching 07/31/18 Yes Uncoded Allergies Type Severity Reaction Last Updated Verified scented hand soap Allergy Intermediate Rash 07/31/18 Physical Exam: PE: Constitutional: Well developed, well nourished, no acute distress, non-toxic appearance. [] HENT: Normocephalic, atraumatic, bilateral external ears normal, no trismus, nose normal. [] Eyes: PERRLA, EOMI, conjunctiva normal, no discharge. [] Neck: Normal range of motion, no tenderness, supple, no stridor. [] Cardiovascular:Heart rate regular rhythm, Lungs & Thorax: No respiratory distress Abdomen:, soft, no tenderness, no masses, no pulsatile masses. [] Skin: Warm, dry, no erythema, no rash. [] Back: No tenderness, no CVA tenderness. [] Extremities: Small scratch on left knee without signs of infection Neurologic: Alert and oriented X 3, normal motor function, normal sensory function, no focal deficits noted. [] Psychologic: Affect normal, judgement normal, mood normal. [] Current Patient Data: Vital Signs: Vital Signs Date Time Temp Pulse Resp B/P (MAP) Pulse Ox O2 Delivery O2 Flow Rate FiO2 11/26/19 18:12 98.2 75 12 98 Room Air 98.2 EKG: EKG: [] Radiology/Procedures: Radiology/Procedures: [] Course & Med Decision Making: Course & Med Decision Making Pertinent Labs and Imaging studies reviewed. (See chart for details) [] Patient no distress. We will start the rabies immunization series. Patient told to follow-up on days 3, 7 and 14.. Return precautions given. Brian Disclaimer: Brian Disclaimer: This electronic medical record was generated, in whole or in part, using a voice recognition dictation system. Departure Departure Impression: Primary Impression: Dog bite of left knee Additional Impression: Need for prophylactic vaccination against rabies Disposition: 01 HOME, SELF-CARE Condition: STABLE Referrals: UNKNOWN PCP NAME (PCP) return here on days 3, 7 and 14 for repeat dosing Patient Instructions: Rabies Vaccine suspension for injection Additional Instructions: EMERGENCY DEPARTMENT GENERAL DISCHARGE INSTRUCTIONS THANK YOU for coming to [facility] Emergency Department (ED) today and trusting us with your care. We trust that you had a positive experience in our Emergency Department. If you wish to speak to the department Management you can contact the whey department operator at . YOUR FOLLOW UP INSTRUCTIONS ARE FOLLOWS: Do you have a private doctor? If you do not have a private doctor, please ask for a resource list of physicians or clinics that may be able to assist you with follow up care. The Emergency Physician has interpreted your x-rays. The X-ray specialist will also review them. If there is a change in the findings you will be notified in 48 hours when at all possible. A lab test or lab culture may have been done, your results will be reviewed and you will be notified if you need a change in treatment. ADDITIONAL INSTRUCTIONS AND INFORMATION Your care today has been supervised by a physician who is specially trained in emergency care. Many problems require more than one evaluation for a complete diagnosis and treatment. We recommend that you schedule your follow up appointment as recommended to ensure complete treatment of your illness or injury. If you are unable to obtain follow up care and continue to have a problem, or if your condition worsens we recommend that you return to the ED. We are not able to safely determine your condition over the phone nor are we able to give sound medical advice over the phone. For these safety reasons, if you call for medical advice we will ask you to come to the ED for further evaluation If you have any questions regarding these discharge instructions please call the ED at . SAFETY INFORMATION In the interest of safety, wellness, and injury prevention; we encourage you to wear your seatbelt, if you smoke; quit smoking, and we encourage your family to use protective helmet for bicycling and other sporting events that present an increased risk for head injury. IF YOUR SYMPTOMS WORSEN OR NEW SYMPTOMS DEVELOP, OR YOU HAVE CONCERNS ABOUT YOUR CONDITION; OR IF YOUR CONDITION WORSENS WHILE YOU ARE WAITING FOR YOUR FOLLOW UP APPOINTMENT; EITHER CONTACT YOUR PRIMARY CARE DOCTOR, THE PHYSICIAN WHOSE NAME AND NUMBER YOU WERE GIVEN, OR RETURN TO THE ED IMMEDIATELY. Justicifation of Admission Dx: Justifications for Admission: Justification of Admission Dx: N/A NICKIE ERAZO MD Nov 26, 2019 18:28
[2019-11-26] MEDS ORDERED: TETANUS AND DIPHTHERIA TOX/PF 0.5 ML DISP.SYRIN. VAX IM ONE (18:30)
[2019-11-26] MEDS ORDERED: RABIES VIRUS VACC PF 2.5 UNIT / 1 ML VIAL. VAX IM ONE (18:30)
== END 2019-11-26 19:16 | disposition home or self-care (01) ==
LOC: ER 16:16
DX: S81.052A Open bite, left knee, initial encounter (principal); F31.9 Bipolar disorder, unspecified; F17.200 Nicotine dependence, unspecified, uncomplicated; I10 Essential (primary) hypertension; Z88.5 Allergy status to narcotic agent; Z91.040 Latex allergy status; Z91.018 Allergy to other foods; Z88.8 Allergy status to other drugs, medicaments and biological substances; W54.0XXA Bitten by dog, initial encounter; Y93.89 Activity, other specified; Y92.89 Other specified places as the place of occurrence of the external cause; Y99.8 Other external cause status
CPT/HCPCS: 90471; 90675; 90714; 96372; 99284